=== PATIENT | male | born 1990 | race African-American/Black ===

== ENCOUNTER 2018-05-03 08:35 | Emergency (ER) | payer SELFPAY ==
--- NOTE | 2018-05-03 08:43 | ER Report ---
History and Physical Time Seen By MD: 08:44 Hx. of Stated Complaint: PATIENT REPORTS THAT HE HAS A DENTAL ABSCESS THAT STARTED ABOUT 3 DAYS AGO. HE IS ALSO REPORTING CHRONIC LEFT HIP PAIN FOR 5+ YEARS HPI/ROS CHIEF COMPLAINT: Dental abscess and hip pain HISTORY OF PRESENT ILLNESS: This is a 27-year-old male. He recently moved here to [place] from [place]. He does not have a primary care provider. He has chronic hip pain and takes amitriptyline 100 mg at bedtime and naproxen twice a day. He was wondering if he could get a refill for these medications. He also is having some swelling in the upper gums, consistent with dental abscess. He has had this same problem a few times in the past, which has cleared up with use of antibiotics. This started a few days ago, and is causing some pain. He denies any fevers or chills. He denies any shortness of breath. No chest pains. Normal bowel and bladder function. Allergies: Coded Allergies: No Known Drug Allergies (Unverified , 05/03/18) Home Meds Active Scripts Amitriptyline Hcl (AMITRIPTYLINE HCL) 100 Mg Tablet, 100 MG PO QHS, #30 TAB 0 Refills Prov:TIARA DEL CID MD 05/03/18 Naproxen (NAPROSYN) 500 Mg Tablet, 500 MG PO Q12H, #60 TAB 0 Refills Prov:TIARA DEL CID MD 05/03/18 Amoxicillin (AMOXICILLIN) 500 Mg Capsule, 1 CAP PO Q8H, #30 CAPSULE 0 Refills Prov:TIARA DEL CID MD 05/03/18 Reviewed Nurses Notes: Yes Hx Substance Use Disorder: No Hx Alcohol Use: No Constitutional Vital Sign - Last 24 Hours 05/03/18 05/03/18 05/03/18 08:39 08:40 09:00 Temp 98.5 Pulse 95 Resp 20 B/P (MAP) 133/87 133/87 (102) 113/79 (90) Pulse Ox 93 O2 Delivery Room Air Physical Exam Gen.: Alert, no acute distress. ENT: Redness in the upper gums between the left first and second incisors. Small area that looks like a small pustule forming. The rest the oral mucosa is normal. Medical Decision Making ED Course/Re-evaluation ED Course Discussed treatment options. The patient would prefer just to do antibiotics at this time. We did talk about the possible need for abscess drainage. He he said that this usually drains on its own once he starts antibiotics and he would like to try that today. I did let him know that if this doesn't drain he would need to follow up either here or with his dentist to have this done. We will start him on amoxicillin for this. For the hip pain, I let them know that he does need to get a primary care provider. We can go ahead and give him a refill of his amitriptyline and naproxen. Further refills would need to be done with a primary care provider Decision to Disposition Date: May 03, 2018 Decision to Disposition Time: 08:49 Depart Departure Latest Vital Signs Vital Signs Date Time Temp Pulse Resp B/P (MAP) Pulse Ox O2 Delivery O2 Flow Rate FiO2 05/03/18 09:00 113/79 (90) 05/03/18 08:39 98.5 95 20 93 Room Air Impression: Primary Impression: Dental abscess Additional Impression: Chronic hip pain Condition: Improved Disposition: HOME OR SELF-CARE New Scripts Amitriptyline Hcl (AMITRIPTYLINE HCL) 100 Mg Tablet 100 MG PO QHS, #30 TAB 0 Refills Prov: TIARA DEL CID MD 05/03/18 Naproxen (NAPROSYN) 500 Mg Tablet 500 MG PO Q12H, #60 TAB 0 Refills Prov: TIARA DEL CID MD 05/03/18 Amoxicillin (AMOXICILLIN) 500 Mg Capsule 1 CAP PO Q8H, #30 CAPSULE 0 Refills Prov: TIARA DEL CID MD 05/03/18 Patient Instructions: Dental Abscess (ED) Additional Instructions: For your dental infection, it appears that there is a small area of swelling that looks like early abscess formation. We will start you on Amoxicillin 500mg three times a day for 10 days. If the abscess does not drain, you will need to have it drained. This can be done here at the ER or by a dentist. You will want to see a dentist for further evaluation to address the reason for this happening. For your hip pain, we can provide prescriptions for your Amitriptyline and Naproxen. You will want to get set up with a primary care provider as we cannot continue to refill prescriptions for chronic conditions through the ER. Problem Qualifiers Additional Impression: Chronic hip pain Laterality: unspecified laterality Qualified Codes: M25.559 - Pain in unspecified hip; G89.29 - Other chronic pain TIARA DEL CID MD May 03, 2018 08:43
[2018-05-03] MEDS ORDERED: AMOX-362 PO (08:53)
[2018-05-03] MEDS ORDERED: AMIT100T53 PO (08:53)
[2018-05-03] MEDS ORDERED: NAPR500T75 PO (08:53)
[2018-05-03 09:00] VITALS: BP 113/79
== END 2018-05-03 09:06 | disposition home or self-care (01) ==
LOC: ER 08:51
DX: K04.7 Periapical abscess without sinus (principal); M25.552 Pain in left hip; G89.29 Other chronic pain
CPT/HCPCS: 99282